=== PATIENT | male | born 1965 | race Caucasian/White ===

== ENCOUNTER 2021-08-12 10:42 | Observation (INO) | payer BC ==
[2021-08-12 11:02] VITALS: TEMP 98.8; BMI 28.1
[2021-08-12] MEDS ORDERED: ACETAMINOPHEN 500 MG TABLET (FP) PO ONE (12:09)
[2021-08-12] MEDS ORDERED: ACETAMINOPHEN 325 MG TABLET (FP) ONE (12:17)
[2021-08-12 12:50] LABS: BASO % 0.7 % (0-2.0); EOS % 1.4 % (0-4.5); HEMATOCRIT 46.8 % (35.4-49); MCH 28.8 pg (25.7-33.7); MCHC 34.2 g/dl (32.0-35.9); MEAN CELL VOLUME 84.3 fl (80-96); MEAN PLT VOLUME 8.6 fl (7.5-11.1); MONO % 8.2 % (3.8-10.2); NEUT % 70.7 % (42.8-82.8); PLATELET COUNT 236 10^3/uL (134-434); RBC 5.56 M/mm3 (4.00-5.60); RDW 14.6 % (11.9-15.9); WHITE BLOOD COUNT 4.3 K/mm3 (4.0-10.0)
[2021-08-12 12:57] LABS: INR 1.08 (0.83-1.09); PROTHROMBIN TIME (PATIENT) 12.4 SEC (9.7-13.0)
[2021-08-12 13:00] LABS: ACTIVATED PTT 33.4 SECONDS (25.2-36.5)
[2021-08-12 13:03] LABS: ALBUMIN 3.6 g/dl (3.4-5.0); BLOOD UREA NITROGEN 12.4 mg/dL (7-18); CALCIUM 9.1 mg/dL (8.5-10.1); MAGNESIUM 2.4 mg/dL (1.8-2.4)
[2021-08-12 13:08] LABS: BILIRUBIN,TOTAL 0.4 mg/dL (0.2-1); TOT PROT 7.5 g/dl (6.4-8.2)
[2021-08-12] MEDS ORDERED: LACTATED RINGERS SOLUTION 1000 ML INFUS.BAG IV ONE (15:34)
[2021-08-12 22:43] VITALS: BP 142/92; PULSE 74
== END 2021-08-12 22:40 | disposition home or self-care (01) ==
LOC: JER 10:42 → JERBED 17:43
PROVIDERS: ADMIT Hospitalist; ATTEND Hospitalist
PROC: 3E0337Z Introduction of Electrolytic and Water Balance Substance into Peripheral Vein, Percutaneous Approach (ICD-10-PCS; principal; 2021-08-12)
DX: R07.9 Chest pain, unspecified (principal); R77.8 Other specified abnormalities of plasma proteins
CPT/HCPCS: 36415; 71046-TC-FY; 71275-TC; 80053; 83735; 84484; 85025; 85379; 85610; 85730; 93005; 93010; 99285-25; C9803-CS; G0378; Q9967; U0003; U0005